=== PATIENT | female | born 1960 | race Hispanic/Latino ===

== ENCOUNTER 2024-01-19 22:07 | Emergency (ER) | payer MEDICARE, OTHER ==
[~2024-01-19] VITALS: Ht 170.2 cm; Wt 76.2 kg
[2024-01-19] MEDS ORDERED: METH-662 PO (23:47)
[2024-01-19] MEDS ORDERED: PRED10TA23 PO (23:47)
[2024-01-20 00:27] VITALS: BP 178/94; PULSE 73; RESP 18; TEMP 98.4; O2SAT 98
[2024-01-20] MEDS: ORPHENADRINE 60MG/2ML IM ONE (00:27)
[2024-01-20] MEDS: TRIAMCINOLONE ACETONIDE 40 MG/ML 1ML VIAL IM ONE (00:27)
== END 2024-01-20 01:08 | disposition home or self-care (01) ==
LOC: EDH 22:07
DX: M47.816 Spondylosis without myelopathy or radiculopathy, lumbar region (principal); I10 Essential (primary) hypertension; Z98.890 Other specified postprocedural states; W01.0XXA Fall on same level from slipping, tripping and stumbling without subsequent striking against object, initial encounter; Y93.89 Activity, other specified; Y92.89 Other specified places as the place of occurrence of the external cause; Y99.8 Other external cause status
CPT/HCPCS: 99284; 72100; 96372 ×2; J3301; J2360

== ENCOUNTER → 2024-02-26 | Outpatient (CLI) | payer OTHER ==
[~2024-02-26] MED LIST: METH-662 PO; PRED10TA23 PO
== END | disposition home or self-care (01) ==
LOC: RAH 13:29
PROVIDERS: ATTEND Internal Medicine
DX: Z12.31 Encounter for screening mammogram for malignant neoplasm of breast (principal); M81.0 Age-related osteoporosis without current pathological fracture; Z78.0 Asymptomatic menopausal state; M85.88 Other specified disorders of bone density and structure, other site
CPT/HCPCS: 77067; 77080